=== PATIENT | male | born 1965 | race Caucasian/White ===

== ENCOUNTER 2021-02-10 08:07 | Day surgery (SDC) | payer MEDICAID ==
[~2021-02-10 08:07] MED LIST: ceFAZolin 2 GM in Premix Bag 1 BAG IV ONE
[2021-02-10] MEDS ORDERED: Dextrose 5%-Lactated Ringers 1,000 ML IV SCH (08:20)
[2021-02-10] MEDS ORDERED: Acetaminophen 500 MG Tab PO ONE (08:30)
[2021-02-10] MEDS ORDERED: fentaNYL 100 MCG/2 ML SDV ONE (08:56)
[2021-02-10] MEDS ORDERED: Propofol 200 MG/20 ML SDV ONE ×3 (08:56→10:57)
[2021-02-10] MEDS ORDERED: Midazolam 1 MG/ML 2 ML SDV ONE (08:57)
[2021-02-10] MEDS: Lidocaine 1% with EPINEPHrine 1:100,000 50 ML MDV ONE ×2 (09:35→10:23)
[2021-02-10] MEDS ORDERED: Bacitracin Oint 1 GM U/D Packet ONE (09:35)
[2021-02-10] MEDS: Bupivacaine 0.5% 50 ML MDV ONE ×2 (09:35→10:23)
[2021-02-10] MEDS ORDERED: Glycopyrrolate 0.2 MG/ML 5 ML MDV ONE (10:16)
--- NOTE | 2021-02-19 15:09 | OR ---
DATE OF PROCEDURE: 02/10/2021 SURGEON: Trenton Burns MD PREOPERATIVE DIAGNOSIS: Lipomas involving left parietal and right occipital scalp. POSTOPERATIVE DIAGNOSIS: Lipomas involving left parietal and right occipital scalp. OPERATIVE PROCEDURES: 1. Repair of recurrent lipoma, left parietal scalp (). 2. Excision of lipoma, right occipital scalp (). ANESTHESIA: Local plus IV sedation. INDICATION FOR PROCEDURE: The patient presents with 2 enlarging lipomas located in the locations noted above. The plan is to proceed with excision of the parietal scalp lesion on the left side and previously . Potential risks of procedure including bleeding, infection, some cosmetic deformity, possible recurrence of the lipomas once again were all reviewed, and the patient wishes to proceed. DETAILS OF PROCEDURE: The patient was taken to the operating room and placed in a supine position. Two areas of concern were then initially shaved overlying the lesion and kind of adjacent to it. Both areas were then prepped and draped, anesthetized with 1% lidocaine and mixed with Marcaine. The initial excision was done on the left parietal scalp. An oblique incision was made over the center of the lesion, carried down to the skin and subcutaneous tissue and through the muscular layer. The lipoma was more or less directly over the galeal surface. This was then excised in what appeared to be a complete manner. The lesion itself measured 5.2 cm and incision length in this case ended up being 4.2 cm lipoma. The deeper soft tissues were approximated with some 4-0 Vicryl stitch and the skin with a 5-0 Prolene skin stitch. Attention was then taken to the right occipital scalp. Identical incision was then made and excision accomplished. In this case, the lesion plus margin length was 4.8 cm and the incision length 3.9 cm. Closure was as per the first lesion. Bacitracin was applied. The patient was taken to the recovery room in satisfactory condition. Trenton Burns MD /[id number]
== END 2021-02-10 12:45 | disposition home or self-care (01) ==
LOC: JP.SDS 08:07
PROVIDERS: ATTEND Surgery
DX: D17.0 Benign lipomatous neoplasm of skin and subcutaneous tissue of head, face and neck (principal); J44.9 Chronic obstructive pulmonary disease, unspecified; Z87.891 Personal history of nicotine dependence
CPT/HCPCS: 88304; J0690; J2250; J2704; J3010; J3490; J7121